=== PATIENT | male | born 1975 | race Caucasian/White ===

== ENCOUNTER 2022-02-13 13:59 | Outpatient (CLI) | payer BC, SELFPAY | END 2022-02-13 14:00 | disposition home or self-care (01) | PROVIDERS: PCP Emergency Medicine; Visit Provider Surgery | DX: K40.90 Unilateral inguinal hernia, without obstruction or gangrene, not specified as recurrent (principal); Z01.818 Encounter for other preprocedural examination | CPT/HCPCS: 36415; 86850; 86900; 86901 ==

== ENCOUNTER 2022-02-19 01:23 | Day surgery (SDC) | payer SELFPAY ==
[2022-02-12 10:59] VITALS: BMI 22.5
--- NOTE | 2022-02-12 11:05 | PC.NURSE ---
Report to the Outpatient Waiting Room, entrance under the green pavilion located off [facility], at time 10:00 on date 02/19/22. Planned Procedure Time: 12:00. Time changes happen often and if your time is changed the preop area will call you the afternoon before. - You and your visitor will be asked to self-screen and do not enter if you have any COVID symptoms. - Only one visitor is requested with a max of two and NO children visitors are allowed at this time. - The patient visitor may be requested to leave or wait in car when not with patient due to distancing restrictions. - A mask is optional within the hospital. Patients may have clear liquids (water, carbonated beverages, clear teas, apple juice) until 3 hours prior to surgery (9:00) with a maximum of 20 ounces. - No food from midnight until time of surgery Take the following medications with a SIP of water the morning of surgery: CITALOPRAM, CYCLOBENZAPRINE IF NEEDED Medications to discontinue per physician: N/A Date to take last dose: N/A Please no make-up, nail jamaican, hairspray, perfume, deodorant, or body powder the day of surgery. No jewelry (including any body piercings) or valuables the day of surgery, leave them at home. Please take a shower or bath the night before, or the morning of, surgery with an antibacterial soap (HIBICLENS). Wear comfortable, loose fitting clothing. - Jewelry must be removed prior to entering the operating room. Rings and piercings that are not removed may be cut off. - The hospital will not accept responsibility for valuables. - Please leave all valuables, including medications, at home the day of surgery. If you are going home after surgery, a licensed taxicab driver must drive you home. - NO public transportation without another adult if you receive anesthesia. - We recommend that an adult stay with you for 24 hours following discharge. - We also recommend that you do not drive, make important decision, drink alcoholic beverages, or take any drugs that were not prescribed by your health care provider for at least 24 hours after your discharge time. Follow any additional instructions given to you from your surgeon. If you or anyone in your household have experienced Covid symptoms in the past week, please notify your surgeon or the nurse liaison at the phone number below for possible testing. Telephone instructions given to VINAY - RYLEY SHREYAS and asked if any additional questions and then verbalized understanding. Patient advised to call surgeon office or pre surgery nurse liaison [phone] if any additional questions.
[2022-02-19] VITALS (8 sets, daily range): BP systolic 123–175; BP diastolic 76–99; PULSE 76–102; RESP 12–17; TEMP 36.6–36.7; O2SAT 99–100
--- NOTE | 2022-02-19 10:44 | P.PNAN_ITS ---
Anes - Initial Pre Proc Eval Procedure: Operation Date: 02/19/22 12:00 Proposed Procedures p Robotic Assisted Left Inguinal Hernia Repair with Mesh - Carmen Burk MD Date/Time: 02/19/22 10:44 Surgeon: Carmen Burk MD Pre Op Diagnosis: Left Ing Hernia Patient Data Age: 46 Gender: M Height: 1.91 m Weight: 81.65 kg Allergies Allergy/AdvReac Type Severity Reaction Status Date / Time codeine AdvReac Intermediate Vomiting Verified 02/19/22 10:41 Home Medications Medication Instructions Recorded Confirmed Type citalopram 20 mg tablet (Celexa) 20 mg PO DAILY 12/28/21 02/19/22 History zolpidem 6.25 mg tablet,extended 6.25 mg PO QHS 12/28/21 02/19/22 History release,multiphase (Ambien CR) cyclobenzaprine 10 mg tablet 10 mg PO TID PRN Pain 02/12/22 02/19/22 History Patient hx anesthesia problems: none Family hx anesthesia problems: none Results Review: All pre-operative results and documents have been reviewed as part of the pre- operative evaluation. [facility] Past Medical History Medical History Depression with anxiety Surgical History Surgical History H/O oral surgery Family History Family History Grandparent Lung cancer Malignant neoplasm of prostate Other Brain cancer Social History Social History Smoking status: Never smoker Alcohol intake: never Alcohol use details: social Substance use: current Substance use type: marijuana Living arrangements: alone Additional occupation/education comments: [employer] [facility] care concerns: No Anes - Eval Final PreProcedure Day of Procedure 02/19/22 10:44 Patient weight: normal Heart: regular rate and rhythm Lungs: clear to auscultation Airway: Mallampati scale class II Neurological: alert and oriented Last oral intake: >/= 8 hours ASA classification: II Emergent: no Anesthetic plan: proceed Anesthesia type and monitoring: general ETT and standard monitoring Results Review: All pre-operative results and documents have been reviewed as part of the pre- operative evaluation. Informed Consent: The patient's anesthetic plan and its attendant risks and benefits were discussed with the patient/family/POA. Questions were solicited and answers provided to the satisfaction of the patient/family/POA.
[2022-02-19] MEDS: LACTATED RINGERS 1,000 ML 30 ML IV CONT (10:45)
[2022-02-19] MEDS: KETOROLAC 15 MG/ML VIAL (*BKC) IV PUSH (10:45)
[2022-02-19] MEDS: ACETAMINOPHEN 500 MG TABLET 1000 MG PO (10:45)
--- NOTE | 2022-02-19 11:12 | PM.IMHP ---
H&P: HPI History of Present Illness Date/Time: 02/19/22 11:12 Chief Complaint: left inguinal hernia Narrative: 46 y/o male presents to office for evaluation of left groin pain after pushing a heavy pallet at work approximately 2 mos ago. He denies bulge. He describes it as a dull ache. He experiences issues with starting to urinate at times but denies urinary discomfort or pain.? He is having normal BMs.? The pain resolved until last week he experienced it again after carrying heavy pain buckets. He hasn't noticed any increase symptoms with coughing or straining. He is now seen in consultation at the request of Dr. Bazan. [facility] Review of Systems Review of Systems: All systems reviewed & are unremarkable except as noted in HPI and below PMFSH Past Medical History Medical History Depression with anxiety Surgical History Surgical History H/O oral surgery Family History Family History Grandparent Lung cancer Malignant neoplasm of prostate Other Brain cancer Social History Social History Smoking status: Never smoker Alcohol intake: never Alcohol use details: social Substance use: current Substance use type: marijuana Living arrangements: alone Additional occupation/education comments: [employer] Spiritual care concerns: No Meds Home Medications and Allergies Home Medications Medication Instructions Recorded Confirmed Type citalopram 20 mg tablet (Celexa) 20 mg PO DAILY 12/28/21 02/19/22 History zolpidem 6.25 mg tablet,extended 6.25 mg PO QHS 12/28/21 02/19/22 History release,multiphase (Ambien CR) cyclobenzaprine 10 mg tablet 10 mg PO TID PRN Pain 02/12/22 02/19/22 History Allergies Allergy/AdvReac Type Severity Reaction Status Date / Time codeine AdvReac Intermediate Vomiting Verified 02/19/22 10:41 Exam Const: General: cooperative, healthy appearing, comfortable and no acute distress Resp: Auscultation: clear to auscultation bilaterally Cardio: Rate: regular rate Rhythm: regular rhythm GI: Inspection: normal to inspection and non-distended GI Palp: Yes abdominal tenderness, Yes Soft to palpation and Yes Hernia present Other: left inguinal hernia Assessment and Plan Assessment and plan (1) Left inguinal hernia: Code(s): K40.90 - Unilateral inguinal hernia, without obstruction or gangrene, not specified as recurrent Status: Acute Assessment and Plan: will setup for robotic assisted LIH repair c mesh
--- NOTE | 2022-02-19 11:14 | WPDHPUPDATE1 ---
History and Physical Update Update Date/Time: 02/19/22 11:14 History and Physical has been reviewed, including an updated exam of the patient. There are NO changes in the patient's condition. Risks, benefits, and alternatives have been discussed and questions answered. Patient agrees to proceed with procedure.
[2022-02-19] MEDS: ceFAZolin 2 GM/D5W 50 ML 2 GM/50 ML BAG IVPB (11:35)
[2022-02-19] MEDS: BUPIVACAINE/EPINEPHRINE 0.5% 10 ML VIAL 30 ML INFILTRATE (12:08)
--- NOTE | 2022-02-19 13:41 | P.OP_ITS ---
Procedure Note - Detailed Date of Procedure 02/19/22 Pre-op Diagnosis Left inguinal hernia Post-op Diagnosis Other (left indirect inguinal hernia, bladder laceration) Procedure Performed robotic assisted left inguinal hernia repair with mesh Surgeon Carmen Burk MD Anesthesia General Indications 46 y/o M c LIH and worsening groin pain over last few months Findings indirect left inguinal hernia, iatrogenic bladder laceration Description of Procedure Patient was brought into the operating room and placed in the supine position. After adequate induction of general anesthesia, the patient was prepped and draped in normal sterile fashion. A time-out was then done to verify the patient's identity, as well as the procedure being performed. I began by making a 8 mm incision in the supraumbilical region, a Veress needle was then placed into the peritoneal cavity. CO2 gas was then insufflated and after adequate pneumoperitoneum was achieved, the Veress needle was removed. I then placed an 8 mm trocar through this incision. I then placed the endoscope through this trocar site and under direct visualization placed 2 further 8 mm ports in the right and left mid abdomen. The [employer] robot was then docked to the 3 trocar sites. I then scrubbed out and went to the robotic console. Upon examining the pelvis, it was noted that the patient had a moderate left inguinal hernia. The right side was examined and no hernia defect was noted. I began by making a preperitoneal flap approximately 6 cm superior to the defect. This flap was carried medially past the umbilical ligaments and laterally to the transversalis. It then began dissection of my medial compartment taking this down to the pubic tubercle. I then began the lateral dissection taking this down to the transversalis fascia. Once these compartments were achieved, I began dissection around the cord structures. A moderate sized indirect hernia was noted at this point. Using careful dissection, was able to reduce indirect hernia sac off the cord structures. It was noted at this point, there was a moderate amount of serosanguineous fluid collecting in the preperitoneal space. Upon examination, there was noted to be an iatrogenic bladder laceration. Intraoperative consultation with Dr. Davey from Urology was obtained. The laceration was identified and Dr. Davey was able to repair this primarily, please see his full operative report for details. Once this was adequately done, I went ahead and placed a large piece of 3D Max mesh into the abdominal cavity. The mesh was carefully positioned, centering the center of the mesh over the indirect defect. Once this was done, was very satisfied with our repair. Using 3-0 Vicryl sutures, I tacked the mesh medially to Tray's ligament. Two lateral sutures were placed from the mesh to the transversalis fascia. I then closed the peritoneal flap with a running 2.0 V Lock suture. The abdomen was then desufflated, and all ports were removed. All incisions were then closed with the 4.0 monocryl suture. Dermabond was placed on each wound. The patient tolerated the procedure well, was extubated in the operating room postoperatively, and will now be transferred to the recovery room in stable condition. Implants large 3DMax mesh Estimated Blood Loss 10 Drains No Packing No Pathology None sent Complications Other complications ( Iatrogenic bladder laceration) Condition Stable Disposition PACU [facility] Billing Surgery - Charge Forward: Surgery Billing
[2022-02-19] MEDS: fentaNYL CITRATE INJ (*CRX) 100 MCG/2 ML VIAL 25 MCG IV PUSH ×4 (13:47→14:32)
--- NOTE | 2022-02-19 16:04 | SUR.PHASEII ---
1550 pt went home with gale cath/lg bag and leg bag also sent with him
--- NOTE | 2022-02-19 16:27 | W.PM.PROC2 ---
Procedure Note - Detailed Date of Procedure 02/19/22 Pre-op Diagnosis Laceration of the bladder Post-op Diagnosis Same Procedure Performed Robotic repair of inadvertent cystotomy Surgeon Anjum Davey MD Anesthesia General Indications Inverted laceration of bladder laceration during robotic inguinal hernia repair Findings Small laceration on dome of bladder. Repaired in 2 layers Description of Procedure I was called in the operating room and during a robotic inguinal hernia repair. Fluid was noted the pelvis. They asked for urologic evaluation. The patient had been sterilely prepped underneath the drape. I exposed the penis. I placed a Jaffe catheter. I filled the bladder with 120-160 cc of saline. Clear fluid could be seen coming from the dome of the bladder. I then went to the console. I examined the pelvis. The bladder had been taken down off the pubic bone in the space of Retzius was mobilized. I could easily see a whole dome of the bladder. It was approximately 1 cm. I could see the Jaffe catheter balloon within the bladder. I repaired this bladder laceration in 2 layers. Both layers with a running 2-0 Vicryl. The 1st layer was a mucosal layer. The 2nd layer was a seromuscular layer. We then filled the bladder to 240 cc with saline. No leakage was noted. The catheter was left to gravity drainage. The urine was clear. He was turned over to the general surgeon for the rest of his surgery. We will keep a Jaffe catheter for approximately 10 days. Estimated Blood Loss 10
== END 2022-02-19 15:55 | disposition home or self-care (01) ==
PROVIDERS: Urology; PCP Emergency Medicine; Visit Provider Surgery
PROC: 8E0Y4CZ Robotic Assisted Procedure of Lower Extremity, Percutaneous Endoscopic Approach (ICD-10-PCS; CPT 49650; principal; 2022-02-19 12:00)
PROC: (CPT 51050; 2022-02-19 12:00)
DX: K40.90 Unilateral inguinal hernia, without obstruction or gangrene, not specified as recurrent (principal); F41.8 Other specified anxiety disorders
CPT/HCPCS: 49650; S2900; A9270; C1781; J0360; J0690; J1100; J1885; J2250; J2405; J2704; J2710; J3010; J7120